=== PATIENT | female | born 1945 | race African-American/Black ===

== ENCOUNTER 2021-06-04 05:30 | Inpatient (IN) | payer OTHER, MEDICARE, SELFPAY ==
[2021-05-31 11:30] LABS: BASOPHILS % (AUTO) 0.6 % (0.0-2.0); EOSINOPHILS # (AUTO) 0.1 K/uL (0.0-0.4); EOSINOPHILS % (AUTO) 1.8 % (0.0-4.0); HEMATOCRIT 41.7 % (36-48); HEMOGLOBIN 13.6 g/dL (12.0-16.0); LYMPHOCYTES # (AUTO) 2.4 K/uL (1.0-5.5); LYMPHOCYTES % (AUTO) 30.3 % (20.5-51.5); MEAN CORPUSCULAR HEMOGLOBIN 28 pg (27-31); MEAN CORPUSCULAR HGB CONC 33 % (32-36); MEAN CORPUSCULAR VOLUME 85 fL (79.0-98.0); MONOCYTES # (AUTO) 0.6 K/uL (0.0-1.0); MONOCYTES % (AUTO) 7.8 % (1.7-9.3); NEUTROPHILS # (AUTO) 4.7 K/uL (1.8-7.7); NEUTROPHILS % (AUTO) 59.5 % (40.0-70.0); PLATELET COUNT (AUTO) 331 K/uL (130-430); RED BLOOD CELL COUNT(AUTO) 4.89 MIL/uL (4.2-6.2); RED CELL DISTRIBUTION WIDTH 13.5 % (9.0-15.0); WHITE BLOOD COUNT (AUTO) 7.9 K/uL (4.8-10.8)
[2021-05-31 11:39] LABS: ANION GAP 9 (5-15); CALCIUM 8.9 mg/dL (8.4-11.0); CHLORIDE 102 mmol/L (98-107); CREATININE 0.88 mg/dL (0.55-1.30); GLUCOSE 161 mg/dL (70-99); POTASSIUM 4.1 mmol/L (3.5-5.1); SODIUM SERUM 140 mmol/L (136-145); UREA NITROGEN, BLOOD 16 mg/dL (8-21)
[2021-05-31 11:40] LABS: BILIRUBIN,URINE NEGATIVE (NEGATIVE); BLOOD, URINE NEGATIVE (NEGATIVE); CLARITY/URINE CLEAR (CLEAR); COLOR,URINE YELLOW (YELLOW); GLUCOSE,URINE NEGATIVE (NEGATIVE); KETONES,URINE NEGATIVE (NEGATIVE); LEUKOCYTE ESTERASE ,URINE 1+ (NEGATIVE); NITRITE, URINE NEGATIVE (NEGATIVE); PH,URINE 5.5 (5.0-8.0); PROTEIN URINE NEGATIVE (NEGATIVE); UROBILINOGEN,URINE 0.2 (0.2-1.0)
[2021-05-31 11:42] LABS: INR 0.9 (0.8-1.2); PROTHROMBIN TIME 9.9 SECS (9.5-12.5)
[2021-05-31 12:08] LABS: BACTERIA,URINE RARE /HPF (None Seen); RBC,URINE 0-3 /HPF (0-3)
[~2021-06-04] VITALS: Ht 160 cm; Wt 93.0 kg
[~2021-06-04 05:30] MED LIST: GLIP2.5T3; LEVO137T32; LISI1TAB13; POTA10TA25
[2021-06-04] MEDS ORDERED: BUPIVACAINE LIPOSOME/PF 266 MG/20 ML VIAL INFIL ONE (06:56)
[2021-06-04] MEDS ORDERED: ceFAZolin SODIUM 1 GM VIAL ONE (07:20)
[2021-06-04] MEDS ORDERED: ePHEDrine sulfate 50 MG/ML VIAL ONE (07:20)
[2021-06-04] MEDS ORDERED: DIPHENHYDRAMINE INJ 50 MG/ML VIAL ONE (07:20)
[2021-06-04] MEDS ORDERED: ONDANSETRON HCL 4 MG/2 ML VIAL ONE (07:20)
[2021-06-04] MEDS ORDERED: DEXAMETHASONE SOD PHOSPHATE 4 MG/ML VIAL ONE (07:20)
[2021-06-04] MEDS ORDERED: NS 50 ML BAG IV ONE (07:20)
[2021-06-04] MEDS ORDERED: PROPOFOL 200MG/ 20ML VIAL (DIPRIVAN) IV ONE (07:20)
[2021-06-04] MEDS ORDERED: NS IRRIG SOLN 1000 ML IR ONE (07:20)
[2021-06-04] MEDS ORDERED: BUPIVACAINE /EPINEPHRINE/PF 0.25% 30 ML VIAL INJ ONE (07:20)
[2021-06-04] MEDS ORDERED: TRANEXAMIC ACID 1,000 MG/10 ML VIAL ONE (07:20)
[2021-06-04] MEDS ORDERED: MIDAZOLAM HCL 5 MG/ML VIAL (VERSED) IV ONE (07:20)
[2021-06-04] MEDS ORDERED: BISACODYL 10 MG/SUPPOSITORY RC PRN (07:45)
[2021-06-04] MEDS ORDERED: D5/0.45 NS 1,000 ML IV ONE (07:45)
[2021-06-04] MEDS ORDERED: ACETAMINOPHEN 325 MG TABLET PO PRN (07:45)
[2021-06-04] MEDS ORDERED: ONDANSETRON HCL 4 MG/2 ML VIAL IVP PRN (09:00)
[2021-06-04] MEDS ORDERED: NALOXONE HCL 0.4 MG/ML AMP (NARCAN) IVP PRN ×2 (09:00)
[2021-06-04] MEDS ORDERED: RIVAROXABAN 10 MG TABLET PO SCH (09:00)
[2021-06-04] MEDS ORDERED: METOCLOPRAMIDE HCL 10 MG/2 ML VIAL IVP PRN (09:00)
[2021-06-04] MEDS ORDERED: HYDROmorphone 1 MG/ML INJ. CARTRIDGE IVP PRN ×2 (09:00)
[2021-06-04] MEDS ORDERED: ACETAMINOPHEN I.V. 1000 MG 100 ML IV ONE ×2 (10:05→10:15)
[2021-06-04] MEDS ORDERED: NAPR-690 PO ×2 (10:10)
[2021-06-04] MEDS ORDERED: CYAN100010 PO (10:10)
[2021-06-04] MEDS ORDERED: SPIR25TA6 PO (10:10)
[2021-06-04] MEDS ORDERED: METF-863 PO (10:10)
[2021-06-04] MEDS ORDERED: LEVO100T9 PO (10:10)
[2021-06-04] MEDS ORDERED: fentaNYL CITRATE/PF 100 MCG/2 ML AMP ONE (10:10)
[2021-06-04] MEDS ORDERED: VITD400 PO (10:10)
[2021-06-04] MEDS ORDERED: ZINC50TA69 PO (10:10)
[2021-06-04] MEDS ORDERED: ROSU10TA2 PO (10:10)
[2021-06-04] MEDS ORDERED: CEPH250C PO (10:10)
[2021-06-04] MEDS ORDERED: KETOROLAC TROMETHAMINE 15 MG VIAL IVP ONE (10:15)
[2021-06-04] MEDS ORDERED: fentaNYL CITRATE/PF 100 MCG/2 ML AMP IVP ONE (10:15)
[2021-06-04] MEDS ORDERED: KETOROLAC TROMETHAMINE 30 MG VIAL ONE (10:24)
[2021-06-04] MEDS: MORPHINE SULFATE 10 MG/ML VIAL IM PRN ×2 (11:23→18:14)
[2021-06-04 11:30] VITALS: BP_SYST 136; BP_SYST 139
--- NOTE | 2021-06-04 11:31 | NUR ---
CONSULT: HOSPITALIST REQUESTING HOSPITALIST DR. ROMO [phone] S/W: DESTINY
[2021-06-04 11:45] VITALS: BP_SYST 135
[2021-06-04 12:15] VITALS: BP_SYST 129
[2021-06-04 13:15] VITALS: BP_SYST 129
[2021-06-04] MEDS: CEFAZOLIN 1 GM IVPB PREMIX 50 ML IV SCH ×2 (13:46→23:09)
[2021-06-04] MEDS: RIVAROXABAN 10 MG TABLET PO SCH (18:13)
[2021-06-05 01:24] VITALS: BP_SYST 132
[2021-06-05] MEDS: MORPHINE SULFATE 10 MG/ML VIAL IM PRN (04:36)
[2021-06-05 08:00] VITALS: BP_SYST 131
[2021-06-05] MEDS ORDERED: DEXTROSE 50% JECT 50 ML DISP.SYRIN IVP PRN (10:00)
[2021-06-05] MEDS ORDERED: ONDANSETRON HCL 4 MG/2 ML VIAL IVP PRN (10:00)
[2021-06-05] MEDS ORDERED: INSULIN REGULAR, HUMAN 100 UNITS/ML, 10 ML VIAL (humuLIN R) SUBCUT PRN (10:00)
[2021-06-05] MEDS ORDERED: ACETAMINOPHEN 325 MG TABLET PO PRN (10:00)
[2021-06-05] MEDS ORDERED: MORPHINE 4 MG INJ. 4 MG/ML VIAL IVP PRN (10:00)
[2021-06-05] MEDS ORDERED: MORPHINE 2 MG/ML INJ. SYRINGE IVP PRN (10:00)
[2021-06-05] MEDS ORDERED: METOCLOPRAMIDE HCL 10 MG/2 ML VIAL IVP PRN (10:00)
[2021-06-05] MEDS: HYDROcodone/ACETAMIN 7.5-325 MG TAB PO PRN ×4 (10:20→22:49)
[2021-06-05] MEDS: RIVAROXABAN 10 MG TABLET PO SCH (10:21)
[2021-06-05] MEDS: ATORVASTATIN 20 MG TABLET PO SCH (14:26)
--- NOTE | 2021-06-05 16:39 | NUR ---
Discharge Planning: DCP faxed pt referral to [facility] for DME and Assisted HH for PT. DCP to follow up
--- NOTE | 2021-06-05 19:30 | NUR ---
OPENING NOTE RECEIVED REPORT FROM AM NURSE. PATIENT AWAKE AND RESTING IN BED, NO S/S OF ACUTE DISTRESS, FALL AND SAFETY CHECKS IN PLACE, CALL LIGHT WITHIN REACH.
[2021-06-05 20:00] VITALS: BP_SYST 130
[2021-06-05] MEDS: SPIRONOLACTONE 25 MG TABLET (ALDACTONE) PO SCH (22:40)
[2021-06-06] VITALS (7 sets, daily range): BP systolic 130–154
--- NOTE | 2021-06-06 | NUR ---
ROUNDS PATIENT SLEEPING AND RESTING IN BED, NO S/S OF ACUTE DISTRESS, FALL AND SAFETY CHECKS IN PLACE, CALL LIGHT WITHIN REACH.
--- NOTE | 2021-06-06 03:37 | NUR ---
OPENING NOTE PATIENT ASLEEP AND RESTING IN BED, NO S/S OF ACUTE DISTRESS, BED IN LOWEST POSITION, FALL AND SAFETY CHECKS IN PLACE, CALL LIGHT WITHIN REACH. Addendum: 06/06/21 at 0342 by Priscilla Guerrero RN ROUNDS [id number] PATIENT ASLEEP AND RESTING IN BED, NO S/S OF ACUTE DISTRESS, BED IN LOWEST POSITION, FALL AND SAFETY CHECKS IN PLACE, CALL LIGHT WITHIN REACH
[2021-06-06] MEDS ORDERED: LEVOTHYROXINE SODIUM 0.1 MG TABLET PO SCH (07:00)
[2021-06-06] MEDS: HYDROcodone/ACETAMIN 7.5-325 MG TAB PO PRN (07:13)
--- NOTE | 2021-06-06 07:38 | NUR ---
PHYSICAL THERAPY CO-SIGN The Physical Therapy Progress Notes documented by [facility] have been reviewed. Reviewed/Co-Signed by: Matheus Fishman Documentation Done by: NEPTALI HAMMOND PTA Addendum: 06/06/21 at 0738 by Matheus Fishman PT Amended: Links added.
--- NOTE | 2021-06-06 07:38 | NUR ---
PHYSICAL THERAPY CO-SIGN The Physical Therapy Progress Notes documented by Mobile Designer have been reviewed. Reviewed/Co-Signed by: Matheus Fishman Documentation Done by: NEPTALI HAMMOND PTA Addendum: 06/06/21 at 0738 by Matheus Fishman PT Amended: Links added.
[2021-06-06] MEDS: SPIRONOLACTONE 25 MG TABLET (ALDACTONE) PO SCH (09:47)
[2021-06-06] MEDS: RIVAROXABAN 10 MG TABLET PO SCH (09:48)
--- NOTE | 2021-06-06 10:00 | NUR ---
Discharge Planning: DCP faxed pt referral to [facility] [phone] will deliver DME and Assisted [phone] DCP spoke to [facility] referral is being reviewed. DCP to follow up. Addendum: 06/06/21 at 1522 by Caroilna Nielsen DP [facility] [phone] will deliver DME and Assisted [phone] accepted pt. Disposition 06
[2021-06-06] MEDS: ATORVASTATIN 20 MG TABLET PO SCH (12:43)
--- NOTE | 2021-06-06 15:47 | NUR ---
PATIENT DISCHARGED HOME, [facility] DC, PIV DC, EDUCATION PROVIDED, NO OTHER NEEDS
--- NOTE | 2021-06-07 07:36 | NUR ---
PHYSICAL THERAPY CO-SIGN The Physical Therapy Progress Notes documented by Finisher Operator have been reviewed. Reviewed/Co-Signed by: Matheus Fishman Documentation Done by: NEPTALI HAMMOND PTA Addendum: 06/07/21 at 0737 by Matheus Fishman PT Amended: Links added.
--- NOTE | 2021-06-07 07:36 | NUR ---
PHYSICAL THERAPY CO-SIGN The Physical Therapy Progress Notes documented by Hair Spring Winder have been reviewed. Reviewed/Co-Signed by: Matheus Fishman Documentation Done by: NEPTALI HAMMOND PTA Addendum: 06/07/21 at 0737 by Matheus Fishman PT Amended: Links added.
== END 2021-06-06 15:45 | disposition home health service (06) | DRG 470 ==
LOC: SMU 05:30 → EEVIPCON 05:30 → SMU 11:23
PROVIDERS: ADMIT Orthopaedic Surgery; ATTEND Orthopaedic Surgery
PROC: 0SRD0J9 Replacement of Left Knee Joint with Synthetic Substitute, Cemented, Open Approach (ICD-10-PCS; principal; 2021-06-04 07:30)
DX: M17.12 Unilateral primary osteoarthritis, left knee (principal); Z20.822 Contact with and (suspected) exposure to COVID-19; E11.9 Type 2 diabetes mellitus without complications; G89.29 Other chronic pain
CPT/HCPCS: 36415; 71046-TC; 80048; 81000; 82948; 82962; 85025; 85610-TC; 85730-TC; 87081; 87086; 88305; 88311; 93005; 97039; 97110-GP; 97116-GP; 97530-GP; C1713; C1776; C9290; J0131; J0690; J1100; J1200; J1885; J2250; J2270; J2405; J2704; J3010; J3490; U0003

== ENCOUNTER 2022-04-30 14:34 | Emergency (ER) | payer OTHER, MEDICARE ==
[~2022-04-30] VITALS: Ht 165.1 cm; Wt 88.0 kg
[~2022-04-30 14:34] MED LIST changes: +ASA81 PO; +CEFA250S32 PO; +CYAN100010 PO; +GLIP10TA21 PO; +LEVO100T PO; +LEVO100T9 PO; -LEVO137T32; +METF-863 PO; +OXYB5TAB16 PO; +OXYIR5 PO; +ROSU10TA2 PO; +SPIR25TA PO; +SPIR25TA6 PO; +VITD400 PO; +ZINC50TA69 PO
[2022-04-30 14:43] VITALS: BP_SYST 155
--- NOTE | 2022-04-30 14:50 | NUR ---
WENT TO DOCTORS OFFICE NEXT DOOR TO F/U POSTOP FOR LEFT HIP, STATED TO COME TO THE EMERGENCY FOR R/O DVT
[2022-04-30] MEDS ORDERED: KETOROLAC TROMETHAMINE 60 MG/2 ML VIAL IM ONE ×3 (15:00→17:29)
--- NOTE | 2022-04-30 17:03 | NUR ---
PT IN [place].
--- NOTE | 2022-04-30 17:10 | NUR ---
PT BIB AWAKE AND ALERT AOX4. NO SOB OR DISTRESS. PT WAS AT HER PCP AND THEY SENT HER HERE TO DO AN ULTRA SOUND OF HER LEFT LOWER LEG TO RULE OUT DVT. PT DENIES PAIN.
[2022-04-30] MEDS ORDERED: ENOXAPARIN SODIUM 80 MG/0.8 ML SYRINGE SUBCUT ONE (17:15)
[2022-04-30] MEDS ORDERED: RIVAROXABAN 15 MG TABLET PO ONE (17:15)
--- NOTE | 2022-04-30 17:15 | NUR ---
MD DR WILLARD AT BEDSIDE
[2022-04-30] MEDS ORDERED: DICL20GE TP (17:56)
[2022-04-30] MEDS ORDERED: RIVA15TA PO (17:56)
[2022-04-30 18:07] VITALS: BP_SYST 126
--- NOTE | 2022-04-30 18:19 | NUR ---
Patient given written and verbal discharge instructions and verbalizes understanding. ER MD DR WILLARD discussed with patient the results and treatment provided. Patient in stable condition. ID arm band removed. Rx of XARELTO AND VOLTAREN given. Patient educated on pain management and to follow up with PMD. Pain Scale 2/10. Opportunity for questions provided and answered. Medication side effect fact sheet provided.
== END 2022-04-30 18:07 | disposition home or self-care (01) ==
LOC: SED 14:34
DX: I82.402 Acute embolism and thrombosis of unspecified deep veins of left lower extremity (principal); M79.652 Pain in left thigh; M25.552 Pain in left hip; J45.909 Unspecified asthma, uncomplicated; Z79.899 Other long term (current) drug therapy
CPT/HCPCS: 99285; 93970; 96374; 96372; J1650; J1885

== ENCOUNTER 2022-06-10 10:32 | Outpatient (CLI) | payer OTHER, MEDICARE ==
[~2022-06-10 10:32] MED LIST changes: +DICL20GE TP; +RIVA15TA PO
== END 2022-06-10 18:14 | disposition home or self-care (01) ==
LOC: SUS 10:32
PROVIDERS: ATTEND Specialist
DX: I82.412 Acute embolism and thrombosis of left femoral vein (principal); M79.89 Other specified soft tissue disorders
CPT/HCPCS: 93971